=== PATIENT | female | born 1950 | race Caucasian/White ===

== ENCOUNTER → 2023-06-24 10:37 | Outpatient (REF) | payer BC, MEDICARE, SELFPAY ==
[2023-06-24 13:02] LABS: ALT (SGPT) 22 U/L (0-35); AST (SGOT) 30 U/L (14-36); Albumin 4.4 g/dl (3.5-5.0); Alkaline Phosphatase 72 U/L (38-126); Blood Urea Nitrogen 17 mg/dl (7-17); Calcium 9.8 mg/dl (8.4-10.2); Carbon Dioxide 27 mmol/L (22-30); Chloride 104 mmol/L (98-107); Glucose 116 mg/dl (70-99); Potassium 4.7 mmol/L (3.5-5.1); Sodium 137 mmol/L (135-145); Total Bilirubin 0.7 mg/dl (0.2-1.3); eGFR > 60.00
[2023-06-24 14:12] LABS: Glycohemoglobin (HgbA1c) 6.2 % (4.0-5.6)
== END ==
LOC: REG 10:37
PROVIDERS: ATTENDING PHYSICIAN Physician Assistant Medical
DX: E11.9 Type 2 diabetes mellitus without complications (principal); I10 Essential (primary) hypertension; E78.2 Mixed hyperlipidemia
CPT/HCPCS: 36415; 80053; 83036

== ENCOUNTER → 2023-06-29 16:04 | Outpatient (REF) | payer BC, MEDICARE, SELFPAY | LOC: WDC 16:04 | PROVIDERS: ATTENDING PHYSICIAN Obstetrics & Gynecology Gynecology; FAMILY PHYSICIAN Physician Assistant Medical | DX: Z12.31 Encounter for screening mammogram for malignant neoplasm of breast (principal) | CPT/HCPCS: 77063; 77067 ==

== ENCOUNTER → 2023-10-14 10:12 | Outpatient (REF) | payer BC, MEDICARE, SELFPAY ==
[2023-10-14 11:08] LABS: % Basophils 0.5 % (0-2); % Eosinophils 2.5 % (0-6); % Immature Granulocytes 0.1 % (0-0.5); % Lymphocytes 45.8 % (20.5-51.1); % Monocytes 5.8 % (1.7-9.3); % Neutrophils 45.3 % (42.2-75.2); Absolute Eosinophils 0.2 10^3/uL (0-0.7); Absolute Lymphocytes 3.5 10^3/uL (1.2-3.4); Absolute Monocytes 0.4 10^3/uL (0.1-0.6); Absolute Neutrophils 3.4 10^3/uL (1.4-6.5); Hematocrit 34.4 % (37.0-47.0); Hemoglobin 11.8 g/dL (12.0-16.0); Mean Corp Hgb Conc. 34.3 g/dL (33.0-37.0); Mean Corpuscular Hgb 29.3 pg (27.0-31.0); Mean Corpuscular Volume 85.4 fL (81.0-99.0); Mean Platelet Volume 11.4 fL (7.4-10.4); Nucleated Red Blood Cells % 0 %; Platelet Count 252 10^3/uL (130-400); Red Blood Cell Count 4.03 10^6/uL (4.20-5.40); White Blood Cell Count 7.6 10^3/uL (4.8-10.8)
[2023-10-14 11:26] LABS: ALT (SGPT) 19 U/L (0-35); AST (SGOT) 27 U/L (14-36); Albumin 4.7 g/dl (3.5-5.0); Alkaline Phosphatase 64 U/L (38-126); Blood Urea Nitrogen 17 mg/dl (7-17); Calcium 10.1 mg/dl (8.4-10.2); Carbon Dioxide 26 mmol/L (22-30); Chloride 103 mmol/L (98-107); Glucose 112 mg/dl (70-99); HDL Cholesterol 110 mg/dl; LDL Cholesterol, Calculated 70 mg/dl; Sodium 137 mmol/L (135-145); Total Bilirubin 0.6 mg/dl (0.2-1.3); Total Cholesterol 210 mg/dl (50-199); Total Protein 7.3 g/dl (6.3-8.2); Triglyceride 150 mg/dl (10-149); Very Low Density Lipoprotein 30 mg/dl (0-30); eGFR > 60.00
[2023-10-14 11:57] LABS: TSH Reflex To Free T4 1.26 uIU/ml (0.47-4.68)
[2023-10-14 12:11] LABS: Glycohemoglobin (HgbA1c) 6.2 % (4.0-5.6)
== END ==
LOC: REG 10:12
PROVIDERS: ATTENDING PHYSICIAN Physician Assistant Medical
DX: Z00.01 Encounter for general adult medical examination with abnormal findings (principal); I10 Essential (primary) hypertension; E78.2 Mixed hyperlipidemia; E11.9 Type 2 diabetes mellitus without complications
CPT/HCPCS: 36415; 80053; 80061; 83036; 84443; 85025

== ENCOUNTER → 2023-10-16 11:00 | Outpatient (REF) | payer BC, MEDICARE, SELFPAY ==
[2023-10-18 10:57] LABS: Microalbumin, Random Urine 0.9 mg/dl (0.6-1.7); Microalbumin/creatinine Ratio 16.8 mg/g
== END ==
LOC: REG 11:00
PROVIDERS: ATTENDING PHYSICIAN Physician Assistant Medical
DX: E11.9 Type 2 diabetes mellitus without complications (principal)
CPT/HCPCS: 82043; 82570

== ENCOUNTER → 2024-02-06 09:51 | Outpatient (REF) | payer BC, MEDICARE, SELFPAY | LOC: RAD 09:51 | PROVIDERS: ATTENDING PHYSICIAN Physician Assistant Medical | DX: M25.551 Pain in right hip (principal) | CPT/HCPCS: 73502 ==

== ENCOUNTER → 2024-04-06 09:52 | Outpatient (REF) | payer BC, MEDICARE, SELFPAY ==
[2024-04-06 11:02] LABS: ALT (SGPT) 22 U/L (0-35); AST (SGOT) 25 U/L (14-36); Albumin 4.4 g/dl (3.5-5.0); Alkaline Phosphatase 61 U/L (38-126); Blood Urea Nitrogen 19 mg/dl (7-17); Calcium 9.8 mg/dl (8.4-10.2); Carbon Dioxide 29 mmol/L (22-30); Chloride 101 mmol/L (98-107); Glucose 108 mg/dl (70-99); Potassium 5.2 mmol/L (3.5-5.1); Sodium 142 mmol/L (135-145); Total Bilirubin 0.5 mg/dl (0.2-1.3); Total Protein 7.1 g/dl (6.3-8.2); eGFR > 60.00
[2024-04-06 14:17] LABS: Glycohemoglobin (HgbA1c) 6.1 % (4.0-5.6)
== END ==
LOC: REG 09:52
PROVIDERS: ATTENDING PHYSICIAN Physician Assistant Medical
DX: E11.9 Type 2 diabetes mellitus without complications (principal); I10 Essential (primary) hypertension; E78.2 Mixed hyperlipidemia
CPT/HCPCS: 36415; 80053; 83036

== ENCOUNTER → 2024-04-15 11:34 | Outpatient (REF) | payer BC, MEDICARE, SELFPAY | LOC: CPAP 11:34 | PROVIDERS: ATTENDING PHYSICIAN Obstetrics & Gynecology Gynecology | DX: Z01.419 Encounter for gynecological examination (general) (routine) without abnormal findings (principal) | CPT/HCPCS: G0123 ==

== ENCOUNTER → 2024-07-01 15:47 | Outpatient (REF) | payer BC, MEDICARE, SELFPAY | LOC: WDC 15:47 | PROVIDERS: ATTENDING PHYSICIAN Obstetrics & Gynecology Gynecology; FAMILY PHYSICIAN Physician Assistant Medical | DX: Z12.31 Encounter for screening mammogram for malignant neoplasm of breast (principal) | CPT/HCPCS: 77063; 77067 ==

== ENCOUNTER → 2024-08-10 10:08 | Outpatient (REF) | payer BC, MEDICARE, SELFPAY ==
[2024-08-10 11:01] LABS: Glycohemoglobin (HgbA1c) 6.1 % (4.0-5.6)
[2024-08-10 11:20] LABS: Microalbumin, Random Urine 2.3 mg/dl (0.6-1.7); Microalbumin/creatinine Ratio 25.1 mg/g
[2024-08-10 11:22] LABS: ALT (SGPT) 21 U/L (0-35); AST (SGOT) 26 U/L (14-36); Albumin 4.7 g/dl (3.5-5.0); Alkaline Phosphatase 73 U/L (38-126); Blood Urea Nitrogen 19 mg/dl (7-17); Calcium 10.2 mg/dl (8.4-10.2); Carbon Dioxide 27 mmol/L (22-30); Chloride 102 mmol/L (98-107); Glucose 114 mg/dl (70-99); HDL Cholesterol 107 mg/dl; LDL Cholesterol, Calculated 67 mg/dl; Potassium 4.9 mmol/L (3.5-5.1); Sodium 140 mmol/L (135-145); Total Bilirubin 0.7 mg/dl (0.2-1.3); Total Cholesterol 204 mg/dl (50-199); Total Protein 7.2 g/dl (6.3-8.2); Triglyceride 153 mg/dl (10-149); Very Low Density Lipoprotein 30 mg/dl (0-30); eGFR > 60.00
== END ==
LOC: REG 10:08
PROVIDERS: ATTENDING PHYSICIAN Physician Assistant Medical
DX: E11.9 Type 2 diabetes mellitus without complications (principal); I10 Essential (primary) hypertension; E78.2 Mixed hyperlipidemia
CPT/HCPCS: 36415; 80053; 80061; 82043; 82570; 83036

== ENCOUNTER → 2024-08-22 10:16 | Outpatient (REF) | payer BC, MEDICARE, SELFPAY | LOC: REG 10:16 | PROVIDERS: ATTENDING PHYSICIAN Nurse Practitioner Adult Health | DX: N76.0 Acute vaginitis (principal) | CPT/HCPCS: 87070; 87102 ==

== ENCOUNTER → 2024-10-01 11:04 | Outpatient (REF) | payer BC, MEDICARE, SELFPAY | LOC: RAD 11:04 | PROVIDERS: ATTENDING PHYSICIAN Physician Assistant Medical | DX: M79.675 Pain in left toe(s) (principal) | CPT/HCPCS: 73630 ==

== ENCOUNTER → 2025-01-10 12:51 | Outpatient (REF) | payer BC, MEDICARE, SELFPAY | LOC: CLAB 12:51 | PROVIDERS: ATTENDING PHYSICIAN Obstetrics & Gynecology Gynecology | DX: N76.0 Acute vaginitis (principal) | CPT/HCPCS: 87070; 87102 ==

== ENCOUNTER → 2025-02-08 09:18 | Outpatient (REF) | payer BC, MEDICARE, SELFPAY ==
[2025-02-08 10:17] LABS: Hematocrit 34.8 % (37.0-47.0); Hemoglobin 11.7 g/dL (12.0-16.0); Mean Corp Hgb Conc. 33.6 g/dL (33.0-37.0); Mean Corpuscular Volume 86.6 fL (81.0-99.0); Nucleated Red Blood Cells % 0.3 %; Platelet Count 229 10^3/uL (130-400); Red Cell Dist. Width 12.6 % (11.5-14.5)
[2025-02-08 10:55] LABS: ALT (SGPT) 18 U/L (0-35); AST (SGOT) 25 U/L (14-36); Albumin 4.6 g/dl (3.5-5.0); Alkaline Phosphatase 57 U/L (38-126); Blood Urea Nitrogen 24 mg/dl (7-17); Calcium 10.0 mg/dl (8.4-10.2); Carbon Dioxide 28 mmol/L (22-30); Chloride 104 mmol/L (98-107); Glucose 112 mg/dl (70-99); Potassium 4.4 mmol/L (3.5-5.1); Sodium 139 mmol/L (135-145); Total Protein 7.3 g/dl (6.3-8.2); Very Low Density Lipoprotein 27 mg/dl (0-30); eGFR > 60.00
[2025-02-08 11:11] LABS: HDL Cholesterol 116 mg/dl; LDL Cholesterol, Calculated 57 mg/dl
[2025-02-08 11:22] LABS: Glycohemoglobin (HgbA1c) 6.0 % (4.0-5.6)
== END ==
LOC: REG 09:18
PROVIDERS: ATTENDING PHYSICIAN Physician Assistant Medical
DX: E11.9 Type 2 diabetes mellitus without complications (principal); I10 Essential (primary) hypertension; E78.2 Mixed hyperlipidemia
CPT/HCPCS: 36415; 80053; 80061; 83036; 84443; 85025